=== PATIENT | male | born 1990 | race Caucasian/White ===

== ENCOUNTER 2020-12-23 23:22 | Emergency (ER) | payer OTHER ==
[2020-12-25 07:11] LABS: HIV SCREEN 4TH GENERATION WRFX Non Reactive (Non Reactive)
[2020-12-25 10:16] LABS: HBSAG SCREEN Negative (Negative); HEP A AB, IGM Negative (Negative); HEP B CORE AB, IGM Negative (Negative); HEP C VIRUS AB <0.1 (0.0-0.9)
[2020-12-25 16:12] LABS: RPR Reactive (Non Reactive); TREPONEMA PALLIDUM ANTIBODIES Reactive (Non Reactive)
[2020-12-25 20:13] LABS: CHLAMYDIA TRACHOMATIS, NAA Positive (Negative); NEISSERIA GONORRHOEAE, NAA Negative (Negative)
== END 2020-12-24 01:03 | disposition home or self-care (01) ==
LOC: ER1 23:22
PROVIDERS: Family Medicine
DX: A53.9 Syphilis, unspecified (principal); N48.5 Ulcer of penis
CPT/HCPCS: 80074; 81001; 86592; 86593; 86780; 87389; 96372; 99283; J0561